=== PATIENT | female | born 1970 | race American Indian/Alaskan Native ===

== ENCOUNTER 2016-07-26 16:11 | Emergency (ER) | payer OTHER ==
[2016-07-26 18:11] LABS: Anion Gap 17 mmol/L; BUN/Creatinine Ratio 15.45; Blood Urea Nitrogen 17 mg/dL (7-17); Calcium 9.5 mg/dL (8.4-10.2); Carbon Dioxide 23 mmol/L (22-30); Chloride 98.3 mmol/L (98-107); Glucose 85 mg/dL (65-100); Hematocrit 35.8 % (30.3-42.9); Hemoglobin 12.1 gm/dl (10.1-14.3); Mean Corpuscular HGB Conc 34 % (30-34); Mean Corpuscular Hemoglobin 27 pg (28-32); Mean Corpuscular Volume 80 fl (79-97); Platelet Count 178 K/mm3 (140-440); Potassium 3.8 mmol/L (3.6-5.0); Red Blood Count 4.49 M/mm3 (3.65-5.03); Red Cell Distribution Width 13.9 % (13.2-15.2); Sodium 134 mmol/L (137-145); White Blood Count 5.7 K/mm3 (4.5-11.0)
[2016-07-26 18:19] LABS: INR 1.09 (0.87-1.13)
[2016-07-26 18:20] LABS: Partial Thromboplastin Time 33.5 Sec. (24.2-36.6)
[2016-07-26 20:40] LABS: Basophils % (Manual) 0 % (0.0-1.8); Blastocytes % (Manual) 0 %
[2016-07-26 20:41] LABS: Diff Status Complete; Elliptocytes Few; Platelet Estimate Consistent w Auto
--- NOTE | 2016-07-26 23:16 | Emergency Department Report ---
ED Chest Pain HPI - General Chief Complaint: Chest Pain Stated Complaint: CHEST PAIN/PACEMAKER Time Seen by Provider: 07/26/16 23:04 Source: patient Mode of arrival: Ambulatory Limitations: No Limitations - History of Present Illness Initial Comments: This is a 46-year-old female who reports shocking sensation in her chest earlier today while she was at work. She does endorse having a pacemaker for atrial fibrillation to overdrive pacer when she goes into atrial fibrillation. She states she is normally in sinus rhythm. She has felt her pacemaker go off in the past as well and states this feels similar. She does not reported being defibrillator. She states that she is supposed be on metoprolol as well as several other medications but has been off them for the past 6 weeks. She apparently is recently switched jobs and has had to switch insurance and his results as possibilities of 5 following up her same physician. She is requesting referrals for new physicians at this time as well. She initially had some discomfort again from the shocks but states he's been resolved and she has felt fine the entire time she's been in the waiting room. Patient reports normal appetite. No fever. No weight changes. Otherwise is feeling at her baseline. Onset: during rest Pain Location: substernal Severity scale (0 -10): 3 Quality: sharp Consistency: now resolved - Related Data Previous Rx's Medication Instructions Recorded Last Taken Type Estrogens, Conjugated [Premarin] 1.25 mg PO QDAY #30 tablet 07/26/16 Unknown Rx Levothyroxine [Synthroid] 175 mcg PO QAM #30 tablet 07/26/16 Unknown Rx Metoprolol [Lopressor TAB] 25 mg PO BID #60 tablet 07/26/16 Unknown Rx Prednisone [predniSONE (Laureano) ER 5 mg PO QDAY #30 tablet. 07/26/16 Unknown Rx TAB] Allergies Allergy/AdvReac Type Severity Reaction Status Date / Time No Known Allergies Allergy Unverified 07/26/16 16:36 WILL score - Will Score Age > 65: (0) No Aspirin use within the Past 7 Days: (0) No 3 or more CAD Risk Factors: (0) No 2 or more Angina events in past 24 hrs: (0) No Known CAD with more than 50% Stenosis: (0) No Elevated Cardiac Markers: (0) No ST Deviation Greater than 0.5mm: (0) No WILL Score: 0 ED Review of Systems ROS: Stated complaint: CHEST PAIN/PACEMAKER Other details as noted in HPI Comment: All other systems reviewed and negative Constitutional: denies: chills, fever Eyes: denies: eye pain, eye discharge, vision change ENT: denies: ear pain, throat pain Respiratory: denies: cough, shortness of breath, wheezing Cardiovascular: chest pain. denies: palpitations Endocrine: no symptoms reported Gastrointestinal: denies: abdominal pain, nausea, diarrhea Genitourinary: denies: urgency, dysuria, discharge Musculoskeletal: denies: back pain, joint swelling, arthralgia Skin: denies: rash, lesions Neurological: denies: headache, weakness, paresthesias Psychiatric: denies: anxiety, depression Hematological/Lymphatic: denies: easy bleeding, easy bruising ED Past Medical Hx - Past Medical History Additional medical history: ATRIAL FIBRILLATION. PITUITARY TUMOR REMOVED - Surgical History Hx Pacemaker: Yes Additional Surgical History: PITUITARY REMOVED - Social History Smoking Status: Never Smoker Substance Use Type: None - Medications Home Medications: Home Medications Medication Instructions Recorded Confirmed Last Taken Type Estrogens, Conjugated [Premarin] 1.25 mg PO QDAY #30 tablet 07/26/16 Unknown Rx Levothyroxine [Synthroid] 175 mcg PO QAM #30 tablet 07/26/16 Unknown Rx Metoprolol [Lopressor TAB] 25 mg PO BID #60 tablet 07/26/16 Unknown Rx Prednisone [predniSONE (Laureano) ER 5 mg PO QDAY #30 tablet. 07/26/16 Unknown Rx TAB] ED Physical Exam - General Limitations: No Limitations General appearance: alert, in no apparent distress - Head Head exam: Present: atraumatic, normocephalic - Eye Eye exam: Present: normal appearance, EOMI. Absent: scleral icterus - ENT ENT exam: Present: normal exam, normal orophraynx, mucous membranes moist - Neck Neck exam: Present: normal inspection. Absent: meningismus, lymphadenopathy - Respiratory Respiratory exam: Present: normal lung sounds bilaterally. Absent: respiratory distress - Cardiovascular Cardiovascular Exam: Present: regular rate, normal rhythm. Absent: systolic murmur, diastolic murmur, rubs, gallop - GI/Abdominal GI/Abdominal exam: Present: soft, normal bowel sounds. Absent: tenderness, guarding - Extremities Exam Extremities exam: Present: normal inspection, normal capillary refill. Absent: tenderness, pedal edema, calf tenderness - Back Exam Back exam: Present: normal inspection. Absent: tenderness, CVA tenderness (R), CVA tenderness (L) - Neurological Exam Neurological exam: Present: alert, oriented X3 - Psychiatric Psychiatric exam: Present: normal affect, normal mood - Skin Skin exam: Present: warm, dry, intact, normal color. Absent: rash ED Course Vital Signs 07/26/16 16:22 Temperature 98.0 F Pulse Rate 73 Respiratory 19 Rate Blood Pressure 107/70 O2 Sat by Pulse 100 Oximetry - Reevaluation(s) Reevaluation #1: 07/26/16 23:04 ECG at 1624 with normal sinus rhythm at 72 bpm with a normal AK and QRS. Normal axis is noted as well. There is some nonspecific T-wave abnormalities noted no reciprocal noted with these. No STEMI noted. No old to compare to. Reevaluation #2: 07/26/16 23:26 Patient is comfortable and well-appearing here. She has sinus rhythm on the monitor. No pacer spikes are noted. ECG demonstrates sinus rhythm as well without pacer spikes. Her labs are unremarkable. Troponin enzymes are negative. I will obtain chest x-ray to assure good placement of the pacer leads. I don't anticipate any problems with this however. I do feel she'll do better with the metoprolol. She was written for her routine medications that she has been limited lacking the last 6 weeks. I did give her several referrals for follow-up as well. Did consider interrogating the pacemaker here but feel that there is really no changes I would institute if this were done. Therefore I have elected to have her do this as an outpatient. Otherwise stable at this time. ED Medical Decision Making - Lab Data Result diagrams: 07/26/16 17:31 07/26/16 17:31 - Radiology Data interpreted by me: Normal chest x-ray with pacemaker with intact wires noted. Critical care attestation.: If time is entered above; I have spent that time in minutes in the direct care of this critically ill patient, excluding procedure time. ED Disposition Clinical Impression: Medication refill Chest pain Qualifiers: Chest pain type: precordial chest pain Qualified Code(s): R07.2 - Precordial pain Disposition: DISCHARGED TO HOME OR SELFCARE Is pt being admited?: No Does the pt Need Aspirin: No Condition: Stable Instructions: Chest Pain (ED) Additional Instructions: I have given several options for cardiology and internal medicine follow-up. It is important for you to follow up with cardiology to have here pacemaker interrogated. Please continue on your medications think you're supposed to be on chronically. Please return if any worsening. Prescriptions: Estrogens, Conjugated [Premarin] 1.25 mg PO QDAY #30 tablet Levothyroxine [Synthroid] 175 mcg PO QAM #30 tablet Metoprolol [Lopressor TAB] 25 mg PO BID #60 tablet Prednisone [predniSONE (Laureano) ER TAB] 5 mg PO QDAY #30 tablet.dr Referrals: MIKAEL INFANTE MD [Staff Physician] - 3-5 Days [facility] [Provider Group] - 3-5 Days [facility] [Provider Group] - 3-5 Days NANCY GREEN MD [Staff Physician] - 3-5 Days [facility] [Provider Group] - 3-5 Days Forms: Work/School Release Form(ED) Time of Disposition: 23:18
[2016-07-27 00:36] VITALS: BP 107/68
--- NOTE | 2016-07-27 07:41 | XRay Report ---
ROUTINE CHEST, TWO VIEWS: HISTORY: chest pain. No comparison. The trachea, heart, mediastinal contour, lung miller and bony thorax are unremarkable. A 2-lead pacemaker device is in position. IMPRESSION: No acute cardiopulmonary process.
== END 2016-07-26 23:50 | disposition home or self-care (01) ==
LOC: ED 16:11
DX: R07.2 Precordial pain (principal); I48.91 Unspecified atrial fibrillation; Z98.890 Other specified postprocedural states
CPT/HCPCS: 36415; 71020; 80048; 84484; 85007; 85025; 85610; 85730; 93005; 93010; 99284